=== PATIENT | male | born 1980 | race Caucasian/White ===

== ENCOUNTER 2022-10-23 21:22 | Emergency (ER) | payer OTHER ==
[2022-10-23] MEDS ORDERED: Famotidine/PF 20 mg/2ml Vial ONE (22:19)
[2022-10-23] MEDS ORDERED: Glycopyrrolate 0.4 MG/ 2 ML VIAL ONE (22:19)
[2022-10-23] MEDS ORDERED: Ondansetron PF 4 MG/2 ML Vial ONE (22:19)
[2022-10-23] MEDS ORDERED: Morphine 2 MG/ML VIAL ONE ×2 (22:19→23:15)
[2022-10-23 22:20] LABS: Hematocrit 41.1 % (42.0-52.0); Hemoglobin 13.9 g/dL (14.0-18.0); Mean Corpuscular HGB CONC 33.9 g/dL (32.0-36.0); Mean Corpuscular Hemoglobin 30.2 pg (27.0-31.0); Mean Corpuscular Volume 89.2 fl (78.0-98.0); Mean Platelet Volume 5.8 fL (7.4-10.4); Platelet Count 194 10x3/uL (130-400); RBC Distribution Width 11.3 % (11.5-14.5); White Blood Cell (WBC) Count 3.2 10x3/uL (4.8-10.8)
[2022-10-23 22:33] LABS: PTT 27.2 sec (22.9-36.1); Prothrombin Time 13.5 sec (12.0-14.7)
[2022-10-23 22:39] LABS: ALT (SGPT) 26 U/L (8-55); AST (SGOT) 17 U/L (5-34); Albumin 4.3 g/dL (3.5-5.0); Alkaline Phosphatase 79 U/L (40-110); Anion Gap 16 mmol/L (10-20); BUN (Urea Nitrogen) 10 mg/dL (8.9-20.6); Bilirubin, Total 0.6 mg/dL (0.2-1.2); Calc. Creatinine Clearance 0 mL/min (70-130); Calcium 9.7 mg/dL (7.8-10.44); Carbon Dioxide 25 mmol/L (22-29); Chloride 106 mmol/L (98-107); Estimated GFR 64; Globulin 2.9 g/dL (2.4-3.5); Glucose 79 mg/dL (70-105); Lipase 47 U/L (8-78); Magnesium 1.9 mg/dL (1.6-2.6); Potassium 3.6 mmol/L (3.5-5.1); Protein, Total 7.2 g/dL (6.0-8.3); Sodium 143 mmol/L (136-145)
[2022-10-23 22:40] LABS: Band 1 % (5-11); Eosinophils 4 % (0-10); Lymphocytes 26 % (21-51); MDiff Complete? YES; Monocytes 17 % (0-10); Neutrophil 52 % (42-75); Platelet Adequacy Comment Appears Adequate
== END 2022-10-24 00:24 | disposition short-term general hospital (02) ==
LOC: BURERS 21:22
DX: K92.0 Hematemesis (principal); R10.13 Epigastric pain; I10 Essential (primary) hypertension; C74.00 Malignant neoplasm of cortex of unspecified adrenal gland; Z95.0 Presence of cardiac pacemaker; Z79.899 Other long term (current) drug therapy; Z86.711 Personal history of pulmonary embolism
CPT/HCPCS: 80053; 82274; 83690; 83735; 85025; 85610; 85730; 96361; 96365; 96375; 96376; J2272; J2405; S0028

== ENCOUNTER 2022-10-30 02:01 | Emergency (ER) | payer OTHER | END 2022-10-30 02:40 | disposition left against medical advice (07) | LOC: BURERS 02:01 | DX: Z53.21 Procedure and treatment not carried out due to patient leaving prior to being seen by health care provider (principal) ==

== ENCOUNTER 2023-05-02 16:29 | Emergency (ER) | payer OTHER ==
[2023-05-02] MEDS ORDERED: Pantoprazole 40 MG VIAL ONE (17:02)
[2023-05-02 17:14] LABS: Hematocrit 34.7 % (42.0-52.0); Hemoglobin 11.5 g/dL (14.0-18.0); Mean Corpuscular HGB CONC 33.1 g/dL (32.0-36.0); Mean Corpuscular Hemoglobin 28.2 pg (27.0-31.0); Mean Corpuscular Volume 85.2 fl (78.0-98.0); Mean Platelet Volume 6.4 fL (7.4-10.4); Platelet Count 173 10x3/uL (130-400); RBC Distribution Width 12.4 % (11.5-14.5); Red Blood Cell (RBC) Count 4.07 mill/uL (4.70-6.10); White Blood Cell (WBC) Count 3.8 10x3/uL (4.8-10.8)
[2023-05-02 17:15] LABS: INR-International Normal Ratio 0.9; Prothrombin Time 12.5 sec (12.0-14.7)
[2023-05-02] MEDS ORDERED: HYDROmorphone 0.5 MG/0.5 ML SYRINGE ONE ×3 (17:15→22:44)
[2023-05-02] MEDS ORDERED: Ondansetron PF 4 MG/2 ML Vial ONE ×2 (17:15→19:14)
[2023-05-02 17:16] LABS: PTT 28.7 sec (22.9-36.1)
[2023-05-02 17:24] LABS: ALT (SGPT) 28 U/L (8-55); AST (SGOT) 22 U/L (5-34); Alkaline Phosphatase 72 U/L (40-110); Anion Gap 13 mmol/L (10-20); BUN (Urea Nitrogen) 11 mg/dL (8.9-20.6); Bilirubin, Total 0.3 mg/dL (0.2-1.2); Calc. Creatinine Clearance 0 mL/min (70-130); Calcium 9.3 mg/dL (7.8-10.44); Carbon Dioxide 26 mmol/L (22-29); Chloride 108 mmol/L (98-107); Estimated GFR 79; Globulin 3.1 g/dL (2.4-3.5); Glucose 76 mg/dL (70-105); Potassium 3.4 mmol/L (3.5-5.1); Protein, Total 7.1 g/dL (6.0-8.3); Sodium 144 mmol/L (136-145)
[2023-05-02 17:36] LABS: Band 2 % (5-11); Eosinophils 7 % (0-10); Lymphocytes 19 % (21-51); MDiff Complete? YES; Monocytes 8 % (0-10); Neutrophil 63 % (42-75)
== END 2023-05-02 23:10 | disposition short-term general hospital (02) ==
LOC: BURERS 16:29
DX: K92.1 Melena (principal); Z79.891 Long term (current) use of opiate analgesic; Z79.01 Long term (current) use of anticoagulants; I10 Essential (primary) hypertension
CPT/HCPCS: 80053; 83690; 85025; 85610; 85730; 96374; 96375; 96376; C9113; J1170; J2405